=== PATIENT | female | born 1960 | race Caucasian/White ===

== ENCOUNTER 2018-05-25 12:56 | Outpatient (CLI) | payer OTHER ==
[2018-05-25] MEDS ORDERED: GADOPENTETATE DIMEGLUMINE 15 ML VIAL IV ONE (13:25)
== END 2018-05-25 19:23 | disposition home or self-care (01) ==
LOC: SMI 12:56
PROVIDERS: ATTEND Psychiatry & Neurology Neurology
DX: G31.9 Degenerative disease of nervous system, unspecified (principal); I63.9 Cerebral infarction, unspecified; D64.9 Anemia, unspecified; R31.9 Hematuria, unspecified
CPT/HCPCS: 70553; A9579 ×2

== ENCOUNTER 2018-06-01 10:25 | Outpatient (CLI) | payer OTHER | END 2018-06-01 19:36 | disposition home or self-care (01) | LOC: SMI 10:25 | PROVIDERS: ATTEND Internal Medicine | DX: K80.20 Calculus of gallbladder without cholecystitis without obstruction (principal); D64.9 Anemia, unspecified; R31.9 Hematuria, unspecified | CPT/HCPCS: 74181 ==